=== PATIENT | male | born 1990 | race Caucasian/White ===

== ENCOUNTER 2020-01-31 20:41 | Emergency (ER) | payer OTHER, SELFPAY ==
[2020-01-31] VITALS (8 sets, daily range): BP systolic 112–136; BP diastolic 30–108; PULSE 74–99; RESP 14–20; TEMP 36.6; O2SAT 96–100; BMI 22.1
[2020-01-31] MEDS: fentaNYL 100 MCG/2 ML Ampul 50 MCG IV ×2 (20:52→21:48)
--- NOTE | 2020-01-31 21:00 | RAD_ITS ---
STUDY: X-RAY - RIGHT TIBIA AND FIBULA REASON FOR EXAM: Male, 29 years old. right lower leg deformity, no AP knee view needed per Dr. Amaro who viewed images at patient''s bedside TECHNIQUE: 2 view(s) of the tibia and fibula were obtained. COMPARISON: None. FINDINGS: There is an oblique comminuted fracture of the distal tibial diaphysis with displacement. There is an oblique comminuted fracture of the distal fibula with displacement and small osseous fragment. The soft tissue structures are unremarkable. RAD/Tibia & Fibula 2 Views IMPRESSION: Distal tibial and fibular oblique comminuted fractures as above. Recommend orthopedic consultation and further further assessment management. Electronically Signed: Valdez Liz DO at 21:15 EDT , Service support ,
[2020-01-31] MEDS: Propofol 200 MG/20 ML Vial IV BOLUS (21:12)
--- NOTE | 2020-01-31 21:35 | RAD_ITS ---
STUDY: X-RAY - RIGHT TIBIA AND FIBULA REASON FOR EXAM: Male, 29 years old. POST REDUCTION TECHNIQUE: 2 view(s) of the tibia and fibula were obtained. COMPARISON: 31 January 2020 prereduction films FINDINGS: There is a similar amount of displacement of the comminuted distal tibial and fibular oblique fractures with the tibia displacement of approximately 1.1 cm medial similar to prior. The soft tissue structures are unremarkable. RAD/Tibia & Fibula 2 Views IMPRESSION: Comment fractures the distal fibula and tibia with similar displacement from previous. Electronically Signed: Valdez Liz DO at 21:50 EDT , Service support ,
--- NOTE | 2020-01-31 22:31 | ED.VISSUMM ---
- ER Visit Summary Date of Service: 01/31/20 Chief Complaint: Right leg injury History of Present Illness: The patient is a 29 M who was playing basketball. He jumped and landed and broke his right lower leg. No other injuries or complaints. Physical Examination: Obvious deformity to the distal third of his right lower leg. Neurovascular intact distally. Compartments soft. Skin intact. Test Results: X-rays show an oblique fracture through his distal third of his right tibia and fibula. Emergency Department Course and Treatment: Patient consented for procedural sedation. This was performed by Dr. Amaro using a total of 200 mg of propofol. The patient maintained good blood pressure and oxygen saturations. Airway was intact. Patient tolerated this well. I placed his leg in a posterior and sugar tong splint, Ortho-Glass. Patient tolerated this well. He was neurovascular intact distally afterwards. Was able to wiggle his toes. Patient was discussed with Dr. Whalen. Patient was still having quite a bit of pain at the fracture site, but did not have any signs of compartment syndrome. He advised placing a long-leg splint. I placed this over his existing splint. The patient tolerated this well. He continues to be able to wiggle his toes. He is neurovascularly intact. His pain has improved with the immobilization of his knee. Patient is requesting discharge and would like to follow-up with Dr. Whalen tomorrow in the office. He does not seem to have pain out of proportion. He will be prescribed a course of Percocet. Return right away for any new or worsening issues. The risks of compartment syndrome discussed. Treatment Plan: As above Disposition: Discharge Impression: Midshaft right tibia and fibula fracture, closed This note was generated with [employer] dictation software. It may contain incorrect words, spelling, and punctuation that were not noted in review of the chart prior to signing ED Disposition - Plan for ED Patient: Referrals: Care Physician,No Primary [Primary Care Provider] -
[2020-01-31] MEDS: HYDROcodone Bitartrate/Apap 5/325 Tablet PO (22:34)
--- NOTE | 2020-01-31 22:34 | ED.DEP ---
ED Disposition - Plan for ED Patient: Instructions: ED Fracture Lower Extremity Prescriptions: Oxycodone HCl/Acetaminophen [Percocet 5/325] 1 tab PO Q6H PRN PRN 5 Days #20 tab PRN Reason: Pain Prescription Printed Referrals: Silvestre Whalen MD [STAFF PHYSICIAN] -
== END 2020-01-31 22:53 | disposition home or self-care (01) ==
LOC: ED 21:04
PROVIDERS: Emergency Provider Emergency Medicine
DX: S82.231A Displaced oblique fracture of shaft of right tibia, initial encounter for closed fracture (principal); S82.431A Displaced oblique fracture of shaft of right fibula, initial encounter for closed fracture; X58.XXXA Exposure to other specified factors, initial encounter; Y93.67 Activity, basketball; Y92.9 Unspecified place or not applicable; Y99.8 Other external cause status
CPT/HCPCS: 29515; 73590; 99156; 99285; J7030; A4216

== ENCOUNTER 2020-02-04 08:27 | Day surgery (SDC) | payer OTHER, SELFPAY ==
[2020-01-31 20:42] VITALS: BMI 22.1
[2020-02-04] VITALS (8 sets, daily range): BP systolic 113–153; BP diastolic 73–90; PULSE 71–100; RESP 15–17; TEMP 36.2–37; O2SAT 92–99; BMI 22.6
[2020-02-04] MEDS: Lactated Ringers 1,000 ML 100 ML IV (09:02)
--- NOTE | 2020-02-04 11:10 | RAD_ITS ---
STUDY: X-RAY - RIGHT TIBIA AND FIBULA REASON FOR EXAM: Male, 29 years old. TIBIAL RODDING TECHNIQUE: 2 view(s) of the tibia and fibula were obtained. COMPARISON: Comparison is made with prior examination dated January 31, 2020. FINDINGS: Intraoperative imaging provided for intramedullary garrett fixation of the comminuted distal tibial fracture. Postoperative soft tissue changes. Stable appearance of the distal fibular fracture. RAD/Tibia & Fibula 2 Views IMPRESSION: Intraoperative imaging provided for intramedullary garrett fixation of the distal tibial fracture. There is good alignment. Electronically Signed: Ravi Fish, at 11:18 EDT , Service support ,
[2020-02-04] MEDS: Cefazolin 1 GM/50 ML BAG IV (11:13)
--- NOTE | 2020-02-04 13:02 | PCM.OP.PRO ---
Procedure Report Date of Procedure: 02/04/20 Preoperative diagnosis: Right tibia and fibula fracture, displaced, Postoperative diagnosis: same Title of operation: Reamed locked intramedullary right tibial nailing Surgeon: Silvestre Whalen Mechanical Systems Design Engineer: Jenni Guzman PA-C Anesthesia: General Medications: Ancef, 2 g Equipment: Breaks T2 tibial nail 9 x 315 mm, 4, 5 mm cross locking screws, 5 mm proximal cap screw Complications: None EBL: 50 Indications for surgery please refer to dictated history and physical note Indications for surgical manager: social work assistant was utilized throughout the entire procedure. They helped with patient positioning holding of the limb and holding of retractors. Helped with exposure throughout. They were vital in fracture reduction, maintenance of reduction with placement of guide gregorio, reaming, placement of intramedullary nail. They were also vital with placement of cross locking screws and maintaining limb alignment for such procedure. They were vital with wound closure, bandage, and splint application, and patient transfer. Without surgical resident, surgical time would have been increased and surgical outcome could have been less optimal. Patient was taken to the OR and transferred to the OR table. General anesthetic was given. Appropriate timeouts performed. Ancef given. Nonoperative lower extremity had a LUIS EDUARDO hose and SCD on throughout. Operative lower extremity was prepped padded and draped in usual orthopedic sterile fashion for the procedure with the help of a physician assistant administrator. Incision was mapped out over the anterior medial knee. Careful dissection brought us down medial to the patellar tendon. We dissected under the patellar tendon medially. Guidepin was placed centrally anteriorly. Position verified radiographically. We reamed the anterior cortex over that. We placed a slightly bent ball-tipped guide gregorio through that hole into the medullary canal of the tibia and while the physician assistant administrator held the fracture reduced. This was placed into the distal fracture fragment just above the ankle joint and verified with radiographs. We then reamed with a small reamer reaming up to a size {10.5}. Size {9} mm appropriately length 315 mm nail was placed over the guide gregorio while the assistant administrator held the fracture reduced and limb in appropriate alignment. Guide gregorio removed. Fracture reduced nicely and was impacted by the assistant administrator. Cross lock screws placed proximal medial under dynamic mode. First distal cross locking screw was placed from anterior to posterior while the assistant administrator held the limb in good reduction in good position for cross lock screw placement. 2 distal cross locking screws placed with the help of the assistant administrator from medial to lateral. X-rays taken throughout. Cross locking screws were 5 mm in diameter fully threaded. Stress AP view of the ankle was taken without widening of the mortise, ankle joint , or syndesmosis. tibia and fibula seem to be in good length and alignment. Mild offset at the fibula deemed acceptable. Nonoperative treatment of the fibula was deemed appropriate. wounds thoroughly irrigated. Gregorio entry site closure in layers. Skin malena utilized. Xeroform 4 x 4's ABD and splint applied by the assistant administrator. Patient awoken from anesthetic and transferred to room bed in recovery room in satisfactory condition. This note was generated with [employer] dictation software. It may contain incorrect words, spelling, and punctuation that were not noted in checking the note before signing.
--- NOTE | 2020-02-04 13:19 | DCINST_ITS ---
Discharge Diet: No Restrictions Discharge Activity: May Not Drive, May not drive while taking narcotic pain medications., Use Walker Ice area for (Minutes): 20 - Ice area for 20 minutes each hour while awake Weight Bearing Status: No weight bearing - right leg Keep extremity elevated above heart level: Operative Extremity Call your doctor if your incision/area has: Continuous Slow Oozing, Sudden Increased Bleeding, Increased Pain/ Swelling, Increased Redness, Foul Smelling Discharge Call your doctor if you observe: Fever of 101 or Higher, Coldness, Increased Pain, Numbness or Tingling, Change in Color, Shortness of breath, Chest pain, Calf discomfort Cleanse incision/area with: Do not get Incision Wet, Keep Dressing Clean & Dry Additional Dressing/Incision Instructions:: aspirin 81mg twice daily for blood clot prevention Allergies/Adverse Reactions: Allergies No Known Allergies Allergy (Verified 02/04/20 08:36) Medications to take at Discharge Oxycodone HCl/Acetaminophen [Percocet 5/325] 1 tab PO Q6H PRN PRN 5 Days #20 tab 01/31/20 Primary Care Physician: Care Physician,No Primary [Primary Care Provider] - Test Results: Test results from this visit will be discussed in further detail at your follow- up appointment, if applicable. Proposed Discharge Date: 02/04/20
[2020-02-04] MEDS: oxyCODONE 5 MG Tablet 10 MG PO (15:06)
== END 2020-02-04 16:08 | disposition home or self-care (01) ==
LOC: SDC 08:28 → AC 08:28
PROVIDERS: Referring Provider Orthopaedic Surgery; Visit Provider Orthopaedic Surgery
PROC: (CPT 27759; principal; 2020-02-04 10:10)
DX: S82.221A Displaced transverse fracture of shaft of right tibia, initial encounter for closed fracture (principal); S82.61XA Displaced fracture of lateral malleolus of right fibula, initial encounter for closed fracture; X50.1XXA Overexertion from prolonged static or awkward postures, initial encounter; Y93.67 Activity, basketball; Y92.9 Unspecified place or not applicable; F17.210 Nicotine dependence, cigarettes, uncomplicated
CPT/HCPCS: 27759; 73590; 76000; C1713; J7120; J2405

== ENCOUNTER → 2020-08-26 15:53 | Outpatient (CLI) | payer OTHER, SELFPAY ==
[2020-02-04 08:46] VITALS: BMI 22.6
--- NOTE | 2020-08-26 16:00 | CT_ITS ---
HISTORY: Tib-fib fracture in January. Pain. Most recent x-rays of the right tibia and fibula are fluoroscopic images from February 04, 2020. X-rays are available from January 31, 2020. Technique: Contiguous helical images were obtained from the patella to the calcaneus. 2-D reformats. 490 images. Findings: Intramedullary garrett is present from the proximal anterior tibia across the fracture nearly to the tibial plafond. There is some healing to the distal femoral diaphyseal fracture. The distal fracture fragment is less than 1 cortex minimally displaced dorsal laterally to the proximal fracture. There is some hyperostosis of healing. The fibular fracture remains with some healing. The distal fracture fragment of the fibula is displaced dorsomedially by less than 1 cortex width. 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 Healing to distal fibular fracture. No abscess. No cellulitis.. Individualized dose optimization techniques were used for this CT. at 0604 Reported and signed by: Star John MD Electronically Signed: Star John MD at 6:03 EDT Tel , Service support ,
== END ==
PROVIDERS: Referring Provider Orthopaedic Surgery; Visit Provider Orthopaedic Surgery
DX: S82.221 Displaced transverse fracture of shaft of right tibia (principal)
CPT/HCPCS: 73700